=== PATIENT | male | born 1995 | race Caucasian/White ===

== ENCOUNTER 2018-09-07 10:07 | Emergency (ER) | payer OTHER ==
[~2018-09-07] VITALS: Ht 167.6 cm; Wt 74.0 kg
[2018-09-07 10:14] VITALS: BP 123/75; PULSE 78; RESP 20; Ht 167.6 cm; Wt 74.0 kg
[2018-09-07] MEDS ORDERED: IBUPROFEN 600 MG TAB PO ONE (11:30)
[2018-09-07] MEDS ORDERED: NAPR-985 PO (12:07)
--- NOTE | 2018-09-07 12:36 | ERD ---
ER Documentation Chief Complaint Chief Complaint Complains of left foot pain after a game yesterday HPI 22-year-old male presenting with pain to his left foot after twisting it yesterday playing basketball. He states that he stepped on another player's foot and his foot twisted. He is not taking medications for symptoms. Denies any numbness or tingling. Denies medical problems. NKDA. Surgical history denies. Social history denies ROS All systems reviewed and are negative except as per history of present illness. Medications Home Meds Active Scripts Naproxen* (Naprosyn*) 500 Mg Tablet, 500 MG PO BID PRN for PAIN AND/OR INFLAMMATION, #30 TAB Prov:DAMARIS DA SILVA PA-C 09/07/18 PMhx/Soc Medical and Surgical Hx: pt denies Medical Hx, pt denies Surgical Hx Hx Alcohol Use: No Hx Substance Use: No Hx Tobacco Use: No FmHx Family History: No diabetes, No coronary disease, No other Physical Exam Vitals Vital Signs Date Temp Pulse Resp B/P (MAP) Pulse Ox O2 O2 Flow FiO2 Time Delivery Rate 09/07/18 98.0 78 20 123/75 98 10:14 (91) Physical Exam GENERAL: The patient is well-appearing, well-nourished, in no acute distress CHEST: Clear to auscultation bilaterally. There are no rales, wheezes or rho nchi. HEART: Regular rate and rhythm. No murmurs, clicks, rubs or gallops. EXTREMITIES: Swelling noted to the left lateral malleolus. No tenderness palpation of the base the fifth metatarsal. No tenderness the proximal fibular head. No syndesmotic pain. Compartments soft. Tender to palpation over the lateral malleolus with no obvious deformity. No crepitus felt on exam. Patient is able to flex and extend with strength 5/5 the left foot. Neurovascularly intact with pulses intact. Cap refill less than 2 seconds NEUROLOGIC: Motor strength in all 4 extremities with 5 out of 5 strength. Sensation grossly intact. SKIN: There is no apparent rash or petechiae. The skin is warm and dry. Results 24 hrs Current Medications Medications Dose Sig/Laurel Start Time Status Last (Trade) Ordered Route PRN Stop Time Admin Dose Reason Admin Ibuprofen 600 mg ONCE ONCE 09/07/18 DC 09/07/18 (Motrin) PO 11:30 11:31 09/07/18 11:31 Procedures/MDM DIAGNOSTIC IMAGING REPORT Patient: GABBY GARNICA : 1995 Age: 22 Sex: M MR #: [id number] DOS: 09/07/18 1117 Ordering MD: ZACHARY DA SILVA PA-C Location: [facility] Room/Bed: PROCEDURE: XR Ankle. CLINICAL INDICATION: Pain TECHNIQUE: AP, oblique and lateral views of the left ankle were performed. COMPARISON: None. FINDINGS: There is normal mineralization and alignment. No fracture or osseous lesion is identified. The joints are normal. There is soft tissue swelling lateral to lateral malleolus. RPTAT: AA IMPRESSION: Soft tissue swelling lateral to the lateral malleolus with no acute fracture. ER Course: Cyril wrap applied to ED. Neuro intact pre-and post Cyril wrap application. Crutches given in ED. Ibuprofen given MDM: 22-year-old male presenting with findings consistent with ankle sprain. I have low suspicion for acute fracture dislocation. I have low suspicion for neuro deficit. I have low suspicion for compartment syndrome. Patient has ankle sprain and will be treated with symptomatic medication. Patient still symptoms change or worsen to return immediately to the ER. Questions answered at discharge Departure Diagnosis: Primary Impression: Ankle sprain Condition: Stable Patient Instructions: Treating Ankle Sprains Referrals: [facility] YOU HAVE RECEIVED A MEDICAL SCREENING EXAM AND THE RESULTS INDICATE THAT YOU DO NOT HAVE A CONDITION THAT REQUIRES URGENT TREATMENT IN THE EMERGENCY DEPARTMENT. FURTHER EVALUATION AND TREATMENT OF YOUR CONDITION CAN WAIT UNTIL YOU ARE SEEN IN YOUR DOCTORS OFFICE WITHIN THE NEXT 1-2 DAYS. IT IS YOUR RESPONSIBILITY TO MAKE AN APPOINTMENT FOR [facility]. IF YOU HAVE A PRIMARY DOCTOR --you should call your primary doctor and schedule an appointment IF YOU DO NOT HAVE A PRIMARY DOCTOR YOU CAN CALL OUR PHYSICIAN REFERRAL HOTLINE AT IF YOU CAN NOT AFFORD TO SEE A PHYSICIAN YOU CAN CHOSE FROM THE FOLLOWING [facility] [address] [facility] [address] [facility]. [facility] [address] [facility] [address] [facility] [address] [facility]. [facility] [address] Additional Instructions: FOLLOW UP WITH YOUR PRIMARY CARE PHYSICIAN TOMORROW.Return to this facility if you are not improving as expected. DAMARIS DA SILVA PA-C Sep 07, 2018 12:36
== END 2018-09-07 12:33 | disposition home or self-care (01) ==
LOC: FTE 10:07
DX: S93.402A Sprain of unspecified ligament of left ankle, initial encounter (principal); W50.2XXA Accidental twist by another person, initial encounter; Y92.310 Basketball court as the place of occurrence of the external cause
CPT/HCPCS: 73610; Z7502; Z7610